=== PATIENT | male | born 1970 | race Caucasian/White ===

== ENCOUNTER 2018-07-08 06:33 | Day surgery (SDC) | payer OTHER, BC ==
[2018-07-08] MEDS ORDERED: DEXAMETHASONE 4 MG/ML 1 ML INJ (06:55)
[2018-07-08] MEDS ORDERED: LIDOCAINE 1% (MPF) 30 ML INJ (06:55)
[2018-07-08] MEDS ORDERED: BUPIVACAINE 0.5% (SDV) 30 ML INJ (06:55)
[2018-07-08] MEDS ORDERED: POVIDONE IODINE 10% 28.4 GM OINT (06:55)
[2018-07-08] MEDS ORDERED: ROCURONIUM 50 MG INJ (07:09)
[2018-07-08] MEDS ORDERED: ONDANSETRON 4 MG INJ (07:09)
[2018-07-08] MEDS ORDERED: FENTAnyl 50 MCG/ML VIAL (07:09)
[2018-07-08] MEDS ORDERED: CEFAZOLIN 1 GM INJ (07:09)
[2018-07-08] MEDS ORDERED: PROPOFOL 20 ML (07:09)
[2018-07-08] MEDS ORDERED: LIDOCAINE 100 MG SYRINGE (07:09)
[2018-07-08] MEDS ORDERED: DEXAMETHASONE 4 MG/ML 5 ML INJ (07:09)
[2018-07-08] MEDS ORDERED: MIDAZOLAM 1 MG/ML 2 ML INJ (07:09)
[2018-07-08] MEDS ORDERED: SUGAMMADEX SODIUM 200 MG/2 ML VIAL IV (07:10)
[2018-07-08] MEDS ORDERED: PROVENTIL HFA 6.7GM INHALER (07:29)
[2018-07-08] MEDS ORDERED: HYDROmorphONE 1 MG/5 ML IV SYRINGE IV ×2 (07:30)
[2018-07-08] MEDS ORDERED: METOCLOPRAMIDE 10 MG INJ IV (07:30)
[2018-07-08] MEDS ORDERED: FENTAnyl 50 MCG/ML VIAL IV ×2 (07:30)
[2018-07-08] MEDS ORDERED: LABETALOL HCL 20MG INJ IV (07:30)
[2018-07-08] MEDS ORDERED: hydrALAzine 20 MG INJ IV (07:30)
[2018-07-08] MEDS: LIDOCAINE 1% (MDV) 20 ML INJ INJ (08:00)
[2018-07-08] MEDS: BUPIVACAINE 0.5% (SDV) 30 ML INJ INJ (08:00)
[2018-07-08] MEDS ORDERED: KETOROLAC 30 MG INJ (08:53)
[2018-07-08] MEDS: ONDANSETRON 4 MG INJ IV (09:26)
[2018-07-08] MEDS: MEPERIDINE 25 MG INJ IV (09:26)
== END 2018-07-08 10:38 | disposition home or self-care (01) ==
LOC: SDS 06:33
DX: M19.071 Primary osteoarthritis, right ankle and foot (principal); E78.5 Hyperlipidemia, unspecified; F41.9 Anxiety disorder, unspecified; F12.90 Cannabis use, unspecified, uncomplicated; Z87.891 Personal history of nicotine dependence
CPT/HCPCS: 28750; 73630